=== PATIENT | female | born 1980 | race Caucasian/White ===

== ENCOUNTER 2021-12-09 16:09 | Inpatient (IN) | payer OTHER ==
[2021-12-09 17:28] LABS: Partial Thromboplastin Time 28.1 sec (22.0-30.0); Prothrombin Time 10.5 sec (9.0-12.0)
[2021-12-09 17:29] LABS: Basophils % (A) 0 %; Eosinophils # (A) 0.1 k/uL (0-0.7); Eosinophils % (A) 1 %; HCT 45.6 % (34.0-46.0); HGB 15.7 gm/dL (11.4-16.0); Lymphocytes # (A) 2.4 k/uL (1.0-4.8); Lymphocytes % (A) 24 %; MCHC 34.3 g/dL (31.0-37.0); MCV 81.7 fL (80.0-100.0); Mean Platelet Volume 10.7; Monocytes # (A) 0.3 k/uL (0-1.0); Monocytes % (A) 3 %; Neutrophils % (A) 71 %; Platelet Count 209 k/uL (150-450); RBC 5.59 m/uL (3.80-5.40); RDW 14.9 % (11.5-15.5); WBC 9.9 k/uL (3.8-10.6)
[2021-12-09 17:32] LABS: ALT 23 U/L (4-34); AST 31 U/L (14-36); African American GFR (CKD) >90 (>60 ml/min/1.73 sqM); Albumin 4.4 g/dL (3.5-5.0); Alkaline Phosphatase 99 U/L (38-126); Anion Gap 12 mmol/L; Blood Urea Nitrogen 13 mg/dL (7-17); Calcium 9.7 mg/dL (8.4-10.2); Carbon Dioxide 23 mmol/L (22-30); Chloride 102 mmol/L (98-107); Glucose 122 mg/dL (74-99); Magnesium 1.7 mg/dL (1.6-2.3); Non-African American GFR(CKD) >90 (>60 ml/min/1.73 sqM); Sodium 137 mmol/L (137-145); Total Bilirubin 0.8 mg/dL (0.2-1.3); Total Protein 7.8 g/dL (6.3-8.2)
--- NOTE | 2021-12-09 17:33 | ED ---
General Adult HPI - General Chief complaint: Chest Pain Stated complaint: chest pain, dizzy Time Seen by Provider: 12/09/21 16:50 Source: patient Mode of arrival: ambulatory Limitations: no limitations - History of Present Illness Initial comments: Dictation was produced using [employer] dictation software. please excuse any grammatical, word or spelling errors. Chief Complaint: 41-year-old female presents to the emergency department for episode of chest pain History of Present Illness: 41-year-old female she is past medical history of tobacco use, hypertension and diabetes. At work today she had an episode of chest pressure. States that it was a pressure-like sensation associated with left shoulder pain. She did report some mild nausea. States that her symptoms went away after she sat down. Patient denies any heart attack. She does have some family history. Patient states after 30 minutes her symptoms all. She is a symptomatically at this time. The ROS documented in this emergency department record has been reviewed and confirmed by me. Those systems with pertinent positive or negative responses have been documented in the HPI. All other systems are other negative and/or noncontributory. PHYSICAL EXAM: General Impression: Alert and oriented x3, not in acute distress HEENT: Normocephalic atraumatic, extra-ocular movements intact, pupils equal and reactive to light bilaterally, mucous membranes moist. Cardiovascular: Heart regular rate and rhythm Chest: Able to complete full sentences, no retractions, no tachypnea Abdomen: abdomen soft, non-tender, non-distended, no organomegaly Musculoskeletal: Pulses present and equal in all extremities, no peripheral edema Motor: no focal deficits noted Neurological: CN II-XII grossly intact, no focal motor or sensory deficits noted Skin: Intact with no visualized rashes Psych: Normal affect and mood ED course: 41-year-old female presents to the emergency department for coca presentation concerning for acute coronary syndrome. Vital signs upon arrival are within acceptable limits. EKG does not show any signs of ischemia or infarction. Laboratory evaluation obtained. CBC unremarkable. Coag panel is negative. Metabolic panel is unremarkable. Troponin is however elevated at 0.051. No old troponins for comparison. Clinical presentation concerning for non-ST segment elevation HI. Patient reevaluated at 6:15 PM and is still asymptomatic. Jose garcia be admitted with cardiology in consultation. Patient given aspirin and started on low-dose heparin. EKG interpretation: Ventricular rate 75, sinus rhythm,. Interval to 45, QS 108, QTc 448. No IN prolongation, no QTC prolongation, no ST or T-wave changes noted. E Overall, this EKG is unremarkable - Related Data Home Medications Medication Instructions Recorded Confirmed Losartan Potassium [Cozaar] 100 mg PO DAILY 12/09/21 12/09/21 carvediloL [Coreg] 25 mg PO BID 12/09/21 12/09/21 hydroCHLOROthiazide 50 mg PO BID 12/09/21 12/09/21 metFORMIN HCL [Glucophage] 1,000 mg PO W/SUPPER 12/09/21 12/09/21 Allergies Allergy/AdvReac Type Severity Reaction Status Date / Time latex Allergy Unknown Verified 12/09/21 17:39 Review of Systems ROS Statement: Those systems with pertinent positive or pertinent negative responses have been documented in the HPI. ROS Other: All systems not noted in ROS Statement are negative. Past Medical History Past Medical History: Diabetes Mellitus, Hypertension History of Any Multi-Drug Resistant Organisms: None Reported Past Surgical History: Section Past Psychological History: No Psychological Hx Reported Smoking Status: Current every day smoker Past Alcohol Use History: None Reported Past Drug Use History: Marijuana General Exam Limitations: no limitations Course Vital Signs 12/09/21 12/09/21 16:20 17:11 Temperature 97.5 F L 97.8 F Pulse Rate 72 73 Respiratory 20 16 Rate Blood Pressure 204/94 177/112 O2 Sat by Pulse 99 99 Oximetry Medical Decision Making - Lab Data Result diagrams: 12/09/21 17:05 12/09/21 17:05 Lab Results 12/09/21 12/09/21 12/09/21 Range/Units 17:05 17:05 17:05 WBC 9.9 (3.8-10.6) k/uL RBC 5.59 H (3.80-5.40) m/uL Hgb 15.7 (11.4-16.0) gm/dL Hct 45.6 (34.0-46.0) % MCV 81.7 (80.0-100.0) fL MCH 28.0 (25.0-35.0) pg MCHC 34.3 (31.0-37.0) g/dL RDW 14.9 (11.5-15.5) % Plt Count 209 (150-450) k/uL MPV 10.7 Neutrophils % 71 % Lymphocytes % 24 % Monocytes % 3 % Eosinophils % 1 % Basophils % 0 % Neutrophils # 7.0 (1.3-7.7) k/uL Lymphocytes # 2.4 (1.0-4.8) k/uL Monocytes # 0.3 (0-1.0) k/uL Eosinophils # 0.1 (0-0.7) k/uL Basophils # 0.0 (0-0.2) k/uL PT 10.5 (9.0-12.0) sec INR 1.0 (<1.2) APTT 28.1 (22.0-30.0) sec Sodium 137 (137-145) mmol/L Potassium 3.7 (3.5-5.1) mmol/L Chloride 102 (98-107) mmol/L Carbon Dioxide 23 (22-30) mmol/L Anion Gap 12 mmol/L BUN 13 (7-17) mg/dL Creatinine 0.74 (0.52-1.04) mg/dL Est GFR (CKD-EPI)AfAm >90 (>60 ml/min/1.73 sqM) Est GFR (CKD-EPI)NonAf >90 (>60 ml/min/1.73 sqM) Glucose 122 H (74-99) mg/dL Calcium 9.7 (8.4-10.2) mg/dL Magnesium 1.7 (1.6-2.3) mg/dL Total Bilirubin 0.8 (0.2-1.3) mg/dL AST 31 (14-36) U/L ALT 23 (4-34) U/L Alkaline Phosphatase 99 (38-126) U/L Troponin I (0.000-0.034) ng/mL Total Protein 7.8 (6.3-8.2) g/dL Albumin 4.4 (3.5-5.0) g/dL 12/09/21 Range/Units 17:05 WBC (3.8-10.6) k/uL RBC (3.80-5.40) m/uL Hgb (11.4-16.0) gm/dL Hct (34.0-46.0) % MCV (80.0-100.0) fL MCH (25.0-35.0) pg MCHC (31.0-37.0) g/dL RDW (11.5-15.5) % Plt Count (150-450) k/uL MPV Neutrophils % % Lymphocytes % % Monocytes % % Eosinophils % % Basophils % % Neutrophils # (1.3-7.7) k/uL Lymphocytes # (1.0-4.8) k/uL Monocytes # (0-1.0) k/uL Eosinophils # (0-0.7) k/uL Basophils # (0-0.2) k/uL PT (9.0-12.0) sec INR (<1.2) APTT (22.0-30.0) sec Sodium (137-145) mmol/L Potassium (3.5-5.1) mmol/L Chloride (98-107) mmol/L Carbon Dioxide (22-30) mmol/L Anion Gap mmol/L BUN (7-17) mg/dL Creatinine (0.52-1.04) mg/dL Est GFR (CKD-EPI)AfAm (>60 ml/min/1.73 sqM) Est GFR (CKD-EPI)NonAf (>60 ml/min/1.73 sqM) Glucose (74-99) mg/dL Calcium (8.4-10.2) mg/dL Magnesium (1.6-2.3) mg/dL Total Bilirubin (0.2-1.3) mg/dL AST (14-36) U/L ALT (4-34) U/L Alkaline Phosphatase (38-126) U/L Troponin I 0.051 H* (0.000-0.034) ng/mL Total Protein (6.3-8.2) g/dL Albumin (3.5-5.0) g/dL Critical Care Time Critical Care Time: Yes Total Critical Care Time: 33 Disposition Clinical Impression: NSTEMI (non-ST elevated myocardial infarction) Disposition: ADMITTED IP TO THIS [facility] Condition: Serious Referrals: None,Stated [REFERRING] - 1-2 days Decision Time: 18:17
[2021-12-09 17:38] LABS: Potassium 3.7 mmol/L (3.5-5.1)
--- NOTE | 2021-12-09 18:04 | XR ---
EXAMINATION TYPE: XR chest 2V DATE OF EXAM: 12/09/2021 COMPARISON: NONE HISTORY: Chest pain TECHNIQUE: 2 views FINDINGS: Heart is normal. Lungs are clear. Diaphragm is normal. Bony thorax is intact. IMPRESSION: Normal chest.
[2021-12-09] MEDS ORDERED: ASPIRIN 81 MG PO STA (18:08)
[2021-12-09] MEDS ORDERED: HEPARIN SODIUM 1,000 UN/ML (10ML VL) IV ONE (18:08)
[2021-12-09] MEDS ORDERED: NITROGLYCERIN SL TABS 0.4 MG TAB SUBLINGUAL PRN (18:14)
[2021-12-09] MEDS ORDERED: HEPARIN SOD,PORK IN 0.45% NACL 25,000 UNIT in 0.45% NACL 1 250ML.BAG IV SCH (18:15)
[2021-12-09] MEDS ORDERED: hydrALAZINE HCL 20 MG/ML 1 ML VIAL IVP STA (19:49)
[2021-12-09] MEDS: NITROGLYCERIN OINT 1 INCH/GM PACKET TOPICAL SCH (19:52)
[2021-12-09 20:21] LABS: Glucose,Whole Blood 101 mg/dL (70-110)
[2021-12-09] MEDS ORDERED: DEXTROSE 50% SYRINGE 50 ML IVP PRN ×2 (21:42)
[2021-12-09] MEDS ORDERED: LOSARTAN 50 MG TAB PO SCH (21:45)
[2021-12-09] MEDS ORDERED: carvediloL 12.5 MG TAB PO SCH ×2 (21:45)
[2021-12-09] MEDS: carvediloL 12.5 MG TAB PO SCH (22:10)
[2021-12-09] MEDS: HEPARIN SODIUM 1,000 UN/ML (10ML VL) IV PRN (22:29)
[2021-12-10] MEDS: NITROGLYCERIN OINT 1 INCH/GM PACKET TOPICAL SCH ×3 (00:02→14:40)
[2021-12-10 05:52] LABS: Glucose,Whole Blood 137 mg/dL (70-110)
[2021-12-10] MEDS: INSULIN ASPART (NovoLOG) 100 UNIT/ML VIAL SQ SCH ×4 (06:31→21:22)
[2021-12-10] MEDS: carvediloL 12.5 MG TAB PO SCH ×2 (06:36→16:40)
[2021-12-10] MEDS: VALSARTAN 160 MG TAB PO SCH (06:36)
[2021-12-10 06:47] LABS: Basophils % (A) 0 %; Eosinophils # (A) 0.1 k/uL (0-0.7); Eosinophils % (A) 1 %; HCT 46.2 % (34.0-46.0); HGB 15.4 gm/dL (11.4-16.0); Lymphocytes # (A) 2.4 k/uL (1.0-4.8); Lymphocytes % (A) 27 %; MCH 27.7 pg (25.0-35.0); MCHC 33.4 g/dL (31.0-37.0); MCV 82.9 fL (80.0-100.0); Mean Platelet Volume 10.8; Monocytes # (A) 0.3 k/uL (0-1.0); Monocytes % (A) 3 %; Neutrophils # (A) 5.8 k/uL (1.3-7.7); Neutrophils % (A) 67 %; Platelet Count 179 k/uL (150-450); RBC 5.57 m/uL (3.80-5.40); RDW 14.9 % (11.5-15.5); WBC 8.6 k/uL (3.8-10.6)
[2021-12-10] MEDS ORDERED: hydrALAZINE HCL 25 MG TAB PO PRN (06:55)
[2021-12-10] MEDS: HEPARIN SODIUM 1,000 UN/ML (10ML VL) IV PRN (07:04)
[2021-12-10 07:05] LABS: African American GFR (CKD) >90 (>60 ml/min/1.73 sqM); Anion Gap 10 mmol/L; Blood Urea Nitrogen 10 mg/dL (7-17); Calcium 9.1 mg/dL (8.4-10.2); Carbon Dioxide 28 mmol/L (22-30); Chloride 101 mmol/L (98-107); Glucose 138 mg/dL (74-99); Non-African American GFR(CKD) >90 (>60 ml/min/1.73 sqM); Potassium 3.3 mmol/L (3.5-5.1); Sodium 139 mmol/L (137-145)
--- NOTE | 2021-12-10 08:58 | P.HPIM ---
History of Present Illness This is a pleasant 41 years old female with past medical history of type 2 diabetes mellitus and hypertension Presents with left shoulder pain and chest pain. Patient states that she follow up with Dr. Stewart and she was diagnosed with diabetes about 2 months ago. 2 nights ago she woke up with tightness in her chest but yesterday when she went to work she was complaining of from central chest pain about/10 nonradiating fel t like deep achy sharp pain as per patient associated with left shoulder pain with no history of trauma. Her chest pain or shoulder pain are now completely resolved 0/10. Also she had some little dizziness. Chest chronic dry cough and she smokes about 1 pack per day she was counseled to quit and she does not feel it natarajan nicotine patch. She uses marijuana sometimes no alcohol. She works as a inside sales person This morning she was asking when she will be discharged. Patient vitals are reviewed. Patient is afebrile. Blood pressure is elevated at 208/84 this morning Labs reviewed showing unremarkable CBC, INR, BMP and liver enzymes Troponin elevated 0.05, 0.06, 0.07. EKG showing normal sinus rhythm at [address] elevation. There is mild ST flattening or slight depression in the lateral limits with some mild criteria for LVH. Chest x-ray: No acute process. Patient is already started on aspirin and heparin drip and electromechanical assembly technician consulted Review of Systems Review of systems CONSTITUTIONAL: No fever, no malaise, no fatigue. HEENT: No recent visual problems or hearing problems. Denied any sore throat. CARDIOVASCULAR: No orthopnea, PND, no palpitations, no syncope. PULMONARY: No shortness of breath, no cough, no hemoptysis. GASTROINTESTINAL: No diarrhea, no nausea, no vomiting, no abdominal pain. Normoactive bowel sounds. NEUROLOGICAL: No headaches, no weakness, no numbness. HEMATOLOGICAL: Denies any bleeding or petechiae. GENITOURINARY: Denies any burning micturition, frequency, or urgency. MUSCULOSKELETAL/RHEUMATOLOGICAL: Denies any joint pain, swelling, or any muscle pain. ENDOCRINE: Denies any polyuria or polydipsia. Past Medical History Past Medical History: Diabetes Mellitus, Hypertension History of Any Multi-Drug Resistant Organisms: None Reported Past Surgical History: Section Past Psychological History: No Psychological Hx Reported Smoking Status: Current every day smoker Past Alcohol Use History: None Reported Past Drug Use History: Marijuana Additional Drug Use History / Comment(s): daily marijuana use Medications and Allergies Home Medications Medication Instructions Recorded Confirmed Type Losartan Potassium [Cozaar] 100 mg PO DAILY 12/09/21 12/09/21 History carvediloL [Coreg] 25 mg PO BID 12/09/21 12/09/21 History hydroCHLOROthiazide 50 mg PO BID 12/09/21 12/09/21 History metFORMIN HCL [Glucophage] 1,000 mg PO W/SUPPER 12/09/21 12/09/21 History Allergies Allergy/AdvReac Type Severity Reaction Status Date / Time latex Allergy Unknown Verified 12/09/21 17:39 Physical Exam Vitals: Vital Signs Temp Pulse Pulse Resp BP BP Pulse Ox 12/10/21 05:50 208/84 12/10/21 04:30 97.8 F 70 18 194/91 97 12/10/21 01:17 178/91 12/10/21 00:25 184/100 12/09/21 23:50 76 18 206/100 95 12/09/21 20:15 97.8 F 75 20 178/83 98 12/09/21 19:40 64 20 197/109 98 12/09/21 18:31 69 16 160/83 99 12/09/21 17:11 97.8 F 73 16 177/112 99 12/09/21 16:20 97.5 F L 72 20 204/94 99 Intake and Output 12/09/21 12/09/21 12/10/21 14:59 22:59 06:59 Intake Total 39.508 Balance 39.508 Intake: Intake, IV Titration 39.508 Amount Heparin Sod,Pork in 0.45% 39.508 NaCl 25,000 unit In 0.45 % NaCl 1 250ml.bag @ 7.35 UNITS/KG/HR 10.002 mls/ hr IV .Q24H [facility] Rx#: [id number] Other: Voiding Method Toilet Toilet # Voids 1 Weight 136.078 kg -GENERAL: The patient is alert and oriented x3, not in any acute distress. Obese HEENT: Pupils are round and equally reacting to light. EOMI. No scleral icterus. No conjunctival pallor. Normocephalic, atraumatic. No pharyngeal erythema. No thyromegaly. CARDIOVASCULAR: S1 and S2 present. No murmurs, rubs, or gallops. PULMONARY: Chest is clear to auscultation, no wheezing or crackles. ABDOMEN: Soft, nontender, nondistended, normoactive bowel sounds. No palpable organomegaly. MUSCULOSKELETAL: No joint swelling or deformity. EXTREMITIES: No cyanosis, clubbing, or pedal edema. NEUROLOGICAL: Gross neurological examination did not reveal any focal deficits. SKIN: No rashes. no petechiae. Results CBC & Chem 7: 12/10/21 06:19 12/10/21 06:19 Labs: Abnormal Lab Results - Last 24 Hours (Table) 12/09/21 12/09/21 12/09/21 Range/Units 17:05 17:05 17:05 RBC 5.59 H (3.80-5.40) m/uL Glucose 122 H (74-99) mg/dL POC Glucose (mg/dL) (70-110) mg/dL Troponin I 0.051 H* (0.000-0.034) ng/mL 12/09/21 12/09/21 12/10/21 Range/Units 18:32 21:42 05:51 RBC (3.80-5.40) m/uL Glucose (74-99) mg/dL POC Glucose (mg/dL) 137 H (70-110) mg/dL Troponin I 0.065 H* 0.071 H* (0.000-0.034) ng/mL Thrombosis Risk Factor Assmnt - Choose All That Apply Any of the Below Risk Factors Present?: Yes Each Factor Represents 1 point: Obesity (BMI >25) Thrombosis Risk Factor Assessment Total Risk Factor Score: 1 Thrombosis Risk Factor Assessment Level: Low Risk Assessment and Plan Assessment: Left shoulder pain and chest pain suspicious for non-STEMI Nicotine dependence Hypertension Diabetes mellitus Obesity Plan: This is a pleasant 41 years old female who presents with non-STEMI Continue with aspirin can Continue with heparin drip Cardiology consult Patient counseled to quit smoking Monitor blood pressure Check hemoglobin A1c Continue with appropriate medication Coreg and losartan and monitor blood pressure closely Labs and medication were reviewed.. Continue same treatment. Continue with symptomatic treatment. Resume home medication. Monitor lytes and vitals. DVT and GI prophylaxis. Further recommendations as per clinical course of the patient DVT prophylaxis: heparin GI Prophylaxis: Pepcid Prognosis is guarded
[2021-12-10] MEDS ORDERED: ASPIRIN 325 MG TAB PO SCH (09:00)
[2021-12-10] MEDS: ATORVASTATIN 20 MG TAB PO SCH (09:37)
[2021-12-10] MEDS: TRIAMTERENE-HCTZ 75-50MG 1 EACH TAB PO SCH (09:37)
--- NOTE | 2021-12-10 11:36 | P.CRDCN ---
History of Present Illness Consult date: 12/10/21 Consult reason: hypertension History of present illness: This is Homer Caraballo NP, I'm dictating on behalf of Dr. Rivero's H&P and A&P The patient was interviewed and examined. HPI: [We have been consulted on a pleasant 41-year-old female for possible N STEMI and hypertension. Patient reports that she was having some chest discomfort, along with tightness and achiness in the middle of her chest. She reported that her lungs were tight feeling and she was having some shortness of breath and dizziness. She came to the hospital for evaluation. She was found to have slightly elevated troponins, but significant hypertension. Her EKG does not demonstrate any acute ST elevation or depression, or T-wave changes. Her blood pressure on arrival was 208/84. The patient was given aspirin as well as started on low-dose heparin drip. Home medications were continued. Patient has a past medical history significant for diabetes and hypertension.] ROS: [No fever, chills, or rigors] [no cough, phlegm, or expectoration] [no nausea, vomiting, or diarrhea] [no hematuria, dysuria] [no musculoskelatal complaints] [no strokes or seizures] [no skin lesions] EXAMINATION: GENERAL: Well-appearing, well-nourished and in no acute distress. NECK: Supple without JVD or thyromegaly. LUNGS: Breath sounds clear to auscultation bilaterally. Respiration equal and unlabored. No wheezes, rales or rhonchi. HEART: Regular rate and rhythm without murmurs, rubs or gallops. S1 and S2 heard. EXTREMITIES: Normal range of motion, no edema. No clubbing or cyanosis. Peripheral pulses intact and strong. REVIEW OF LABS, ECG & MEDICAL DATA: LABS: White count 8.6, hemoglobin 15.4, platelets 179, sodium 139, potassium 3.3, B1 10, creatinine 0.60, hemoglobin A1c 6.0, troponin 0.065, 0.071, TSH 1.380 EKG: Normal sinus rhythm with first-degree AV block. IMAGING: Chest x-ray dated 12/09/2021 shows a normal chest. VITALS: Temp 97.9, pulse 67, respirations 16, blood pressure 188/102, O2 saturation 97% on room air IMPRESSION: 1. Severe hypertension, uncontrolled 2. Diabetes mellitus, controlled 3. Elevated troponins PLAN: Patient has not had an ME. Troponin elevation is secondary to severe hypertension. Start Maxide 75-50 daily. Discontinue high-dose aspirin, start aspirin 81 mg daily. Discontinue hydralazine. Start atorvastatin 20 mg daily. Discontinue heparin. Check TSH, lipid panel, and hemoglobin A1c Further recommendations based on the patient's clinical course. Thank you for the consult and allowing us to participate in the care of this patient. Past Medical History Past Medical History: Diabetes Mellitus, Hypertension History of Any Multi-Drug Resistant Organisms: None Reported Past Surgical History: Section Past Psychological History: No Psychological Hx Reported Smoking Status: Current every day smoker Past Alcohol Use History: None Reported Past Drug Use History: Marijuana Additional Drug Use History / Comment(s): daily marijuana use Medications and Allergies Home Medications Medication Instructions Recorded Confirmed Type Losartan Potassium [Cozaar] 100 mg PO DAILY 12/09/21 12/09/21 History carvediloL [Coreg] 25 mg PO BID 12/09/21 12/09/21 History hydroCHLOROthiazide 50 mg PO BID 12/09/21 12/09/21 History metFORMIN HCL [Glucophage] 1,000 mg PO W/SUPPER 12/09/21 12/09/21 History Allergies Allergy/AdvReac Type Severity Reaction Status Date / Time latex Allergy Unknown Verified 12/09/21 17:39 Physical Exam Vitals: Vital Signs Temp Pulse Pulse Resp BP BP Pulse Ox 12/10/21 09:04 97.9 F 67 16 188/102 97 12/10/21 08:00 16 12/10/21 05:50 208/84 12/10/21 04:30 97.8 F 70 18 194/91 97 12/10/21 01:17 178/91 12/10/21 00:25 184/100 12/09/21 23:50 76 18 206/100 95 12/09/21 20:15 97.8 F 75 20 178/83 98 12/09/21 19:40 64 20 197/109 98 12/09/21 18:31 69 16 160/83 99 12/09/21 17:11 97.8 F 73 16 177/112 99 12/09/21 16:20 97.5 F L 72 20 204/94 99 Intake and Output 1012/10/21 12/10/21 22:59 06:59 14:59 Intake Total 39.508 121.592 Balance 39.508 121.592 Intake: Intake, IV Titration 39.508 121.592 Amount Heparin Sod,Pork in 0.45% 39.508 121.592 NaCl 25,000 unit In 0.45 % NaCl 1 250ml.bag @ 7.35 UNITS/KG/HR 10.002 mls/ hr IV .Q24H [facility] Rx#: [id number] Other: Voiding Method Toilet Toilet Toilet # Voids 1 1 Weight 136.078 kg Results 12/10/21 06:19 12/10/21 06:19 Cardiac Enzymes 12/09/21 12/09/21 12/09/21 Range/Units 17:05 17:05 18:32 AST 31 (14-36) U/L Troponin I 0.051 H* 0.065 H* (0.000-0.034) ng/mL 12/09/21 Range/Units 21:42 AST (14-36) U/L Troponin I 0.071 H* (0.000-0.034) ng/mL Coagulation 12/09/21 12/09/21 12/10/21 Range/Units 17:05 21:42 06:19 PT 10.5 (9.0-12.0) sec APTT 28.1 29.8 31.3 H (22.0-30.0) sec CBC 12/09/21 12/10/21 Range/Units 17:05 06:19 WBC 9.9 8.6 (3.8-10.6) k/uL RBC 5.59 H 5.57 H (3.80-5.40) m/uL Hgb 15.7 15.4 (11.4-16.0) gm/dL Hct 45.6 46.2 H (34.0-46.0) % Plt Count 209 179 (150-450) k/uL Comprehensive Metabolic Panel 12/09/21 12/10/21 Range/Units 17:05 06:19 Sodium 137 139 (137-145) mmol/L Potassium 3.7 3.3 L (3.5-5.1) mmol/L Chloride 102 101 (98-107) mmol/L Carbon Dioxide 23 28 (22-30) mmol/L BUN 13 10 (7-17) mg/dL Creatinine 0.74 0.60 (0.52-1.04) mg/dL Glucose 122 H 138 H (74-99) mg/dL Calcium 9.7 9.1 (8.4-10.2) mg/dL AST 31 (14-36) U/L ALT 23 (4-34) U/L Alkaline Phosphatase 99 (38-126) U/L Total Protein 7.8 (6.3-8.2) g/dL Albumin 4.4 (3.5-5.0) g/dL Current Medications Generic Name Dose Route Start Last Admin Trade Name Freq PRN Reason Stop Dose Admin Aspirin 81 mg 12/11/21 09:00 Aspirin 81 Mg PO DAILY [facility] Atorvastatin Calcium 20 mg 12/10/21 09:15 12/10/21 09:37 Atorvastatin 20 Mg Tab PO 20 mg DAILY [facility] Administration Carvedilol 25 mg 12/09/21 22:15 12/10/21 06:36 Carvedilol 12.5 Mg Tab PO 25 mg BID-W/MEALS [facility] Administration Dextrose/Water 25 ml 12/09/21 21:42 Dextrose 50% Syringe 50 Ml IVP PER PROTOCOL PRN Hypoglycemia Protocol Dextrose/Water 50 ml 12/09/21 21:42 Dextrose 50% Syringe 50 Ml IVP PER PROTOCOL PRN Hypoglycemia Protocol Heparin Sodium (Porcine) 0 unit 12/09/21 18:08 12/10/21 07:04 Heparin Sodium 1,000 Un/Ml (10ml Vl) IV 4,000 unit PER PROTOCOL PRN Administration Low PTT Protocol Heparin Sodium/Sodium Chloride 250 mls @ 10.002 mls/hr 12/09/21 18:15 12/10/21 07:04 25,000 unit/ Sodium Chloride IV 13.35 units/kg/hr .Q24H [facility] 18.166 mls/hr Titration Protocol 7.35 UNITS/KG/HR Insulin Aspart 0 unit 12/10/21 07:30 12/10/21 06:31 Insulin Aspart (Novolog) 100 Unit/Ml Vial SQ Not Given ACHS [facility] Protocol Nitroglycerin 0.4 mg 12/09/21 18:14 Nitroglycerin Sl Tabs 0.4 Mg Tab SUBLINGUAL Q5M PRN Chest Pain Nitroglycerin 1 inch 12/09/21 19:45 12/10/21 05:18 Nitroglycerin Oint 1 Inch/Gm Packet TOPICAL 1 inch Q6HR [facility] Administration Triamterene/Hydrochlorothiazide 1 each 12/10/21 09:15 12/10/21 09:37 Triamterene-Hctz 75-50mg 1 Each Tab PO 1 each DAILY [facility] Administration Valsartan 320 mg 12/10/21 06:19 12/10/21 06:36 Valsartan 160 Mg Tab PO 320 mg DAILY@0900 [facility] Administration Intake and Output 12/09/21 12/10/21 12/10/21 22:59 06:59 14:59 Intake Total 39.508 121.592 Balance 39.508 121.592 Intake: Intake, IV Titration 39.508 121.592 Amount Heparin Sod,Pork in 0.45% 39.508 121.592 NaCl 25,000 unit In 0.45 % NaCl 1 250ml.bag @ 7.35 UNITS/KG/HR 10.002 mls/ hr IV .Q24H [facility] Rx#: [id number] Other: Voiding Method Toilet Toilet Toilet # Voids 1 1 Weight 136.078 kg 12/10/21 06:19 12/10/21 06:19
[2021-12-10 11:40] LABS: Glucose,Whole Blood 134 mg/dL (70-110)
[2021-12-10 11:58] LABS: Chol/HDL Ratio 7.44 Ratio
[2021-12-10] MEDS ORDERED: carvediloL 12.5 MG TAB PO STA (12:21)
[2021-12-10] MEDS ORDERED: POTASSIUM CHLORIDE ER 20 MEQ TAB.ER PO STA (15:35)
[2021-12-10 16:40] LABS: Glucose,Whole Blood 111 mg/dL (70-110)
[2021-12-10 19:49] LABS: Glucose,Whole Blood 115 mg/dL (70-110)
[2021-12-11 05:01] VITALS: RESP 18
[2021-12-11 05:56] LABS: Glucose,Whole Blood 133 mg/dL (70-110)
[2021-12-11] MEDS: carvediloL 12.5 MG TAB PO SCH (06:23)
[2021-12-11] MEDS: INSULIN ASPART (NovoLOG) 100 UNIT/ML VIAL SQ SCH ×2 (06:26→12:15)
[2021-12-11 07:09] LABS: African American GFR (CKD) >90 (>60 ml/min/1.73 sqM); Anion Gap 12 mmol/L; Blood Urea Nitrogen 12 mg/dL (7-17); Carbon Dioxide 26 mmol/L (22-30); Chloride 99 mmol/L (98-107); Glucose 124 mg/dL (74-99); Non-African American GFR(CKD) >90 (>60 ml/min/1.73 sqM); Potassium 3.6 mmol/L (3.5-5.1); Sodium 137 mmol/L (137-145)
[2021-12-11] MEDS: VALSARTAN 160 MG TAB PO SCH (08:51)
[2021-12-11] MEDS: ATORVASTATIN 20 MG TAB PO SCH (08:51)
[2021-12-11] MEDS: TRIAMTERENE-HCTZ 75-50MG 1 EACH TAB PO SCH (08:51)
[2021-12-11 08:54] VITALS: TEMP 97.8
[2021-12-11] MEDS ORDERED: ASPIRIN 81 MG PO SCH (09:00)
[2021-12-11] MEDS ORDERED: EZETIMIBE 10 MG TAB PO SCH (09:30)
--- NOTE | 2021-12-11 11:26 | P.PN ---
Subjective Progress Note Date: 12/11/21 This is Homer Caraballo NP, I'm dictating on behalf of Dr. Rivero's H&P and A&P. Patient was interviewed and examined. Patient is a pleasant 41-year-old female who we were initially consult on for severe hypertension. Patient reports that she feels completely fine today. She denies chest pain, shortness of breath, headache, dizziness, and diaphoresis. Patient was found to have triglycerides of 558, a cholesterol of 238, an HDL of 32. Her hemoglobin A1c is within normal limits. Her TSH is within normal limits. She has been tolerating the addition of Maxide and atorvastatin. Her blood pressures are demonstrating improvement, however still elevated. GENERAL: Well-appearing, well-nourished and in no acute distress. NECK: Supple without JVD or thyromegaly. LUNGS: Breath sounds clear to auscultation bilaterally. Respiration equal and unlabored. No wheezes, rales or rhonchi. HEART: Regular rate and rhythm without murmurs, rubs or gallops. S1 and S2 heard. EXTREMITIES: Normal range of motion, no edema. No clubbing or cyanosis. Peripheral pulses intact and strong. VITALS: Temp 97.8, pulse 72, respirations 18, blood pressure 169/87, O2 saturation 97% on room air. TELEMETRY: Normal sinus rhythm LABS: Sodium 137, potassium 3.6, B1 12, creatinine 0.67, calcium 9.0, triglycerides 55 8, cholesterol 238, HDL 32, TSH 1.38 IMPRESSION: 1. Severe hypertension, uncontrolled, improving 2. Diabetes mellitus, controlled 3. Elevated troponins PLAN: Patient may be discharged from a cardiology standpoint Patient should be discharged on: Zetia 1 tab daily Atorvastatin 20 mg daily Carvedilol 50 mg twice a day Maxide one tablet daily Valsartan 320 mg daily Follow-up with Dr. Rivero in 1-2 weeks Objective - Vital Signs Vital signs: Vital Signs Temp 97.8 F 12/11/21 08:51 Pulse 72 12/11/21 08:51 Resp 18 12/11/21 08:51 BP 169/87 12/11/21 08:51 Pulse Ox 97 12/11/21 08:51 FiO2 Intake & Output 10/15/22 10/16/22 10/16/22 18:59 06:59 18:59 Intake Total 328.492 118 Output Total 300 Balance 28.492 118 Intake: Intake, IV Titration 210.492 Amount Heparin Sod,Pork in 0.45% 210.492 NaCl 25,000 unit In 0.45 % NaCl 1 250ml.bag @ 7.35 UNITS/KG/HR 10.002 mls/ hr IV .Q24H [facility] Rx#: [id number] Oral 118 118 Output: Urine 300 Other: Voiding Method Toilet Toilet Toilet # Voids 2 # Bowel Movements 1 - Labs CBC & Chem 7: 12/10/21 06:19 12/11/21 06:03 Labs: Abnormal Lab Results - Last 24 Hours (Table) 12/10/21 12/10/21 12/10/21 Range/Units 06:19 11:38 16:35 Potassium 3.3 L (3.5-5.1) mmol/L Glucose 138 H (74-99) mg/dL POC Glucose (mg/dL) 134 H 111 H (70-110) mg/dL Triglycerides 558.00 H (0.00-149.00) mg/dL Cholesterol 238.00 H (0.00-200.00) mg/dL HDL Cholesterol 32.00 L (40.00-60.00) mg/dL 12/10/21 12/11/21 12/11/21 Range/Units 19:47 05:53 06:03 Potassium (3.5-5.1) mmol/L Glucose 124 H (74-99) mg/dL POC Glucose (mg/dL) 115 H 133 H (70-110) mg/dL Triglycerides (0.00-149.00) mg/dL Cholesterol (0.00-200.00) mg/dL HDL Cholesterol (40.00-60.00) mg/dL
[2021-12-11 11:36] LABS: Glucose,Whole Blood 111 mg/dL (70-110)
[2021-12-11 12:17] VITALS: BP 174/94; PULSE 84
--- NOTE | 2021-12-11 22:37 | P.DS ---
Providers Date of admission: 12/09/21 18:14 Attending physician: Yisel Crowley Consults: 12/09/21 18:14 Consult Physician Urgent Consulting Provider: Aram Merino Consult Reason/Comments: nstemi Do you want consulting provider notified?: Yes Primary care physician: [facility] Course: Diagnoses: Hypertension, uncontrolled on admission. Better controlled on discharge. Cleared By technical intern for discharge elevated troponin, secondary to above. Left shoulder pain and chest pain, secondary to above. resolve Nicotine dependence history of diabetes mellitus Diabetes mellitus. Repeat hemoglobin A1c is 6%. Patient advised with diet control Obesity Hospital course: This is a pleasant 41 years old female with past medical history of type 2 diabetes mellitus and hypertension Presents with left shoulder pain and chest pain. Patient states that she follow up with Dr. Stewart and she was diagnosed with diabetes about 2 months ago. 2 nights ago she woke up with tightness in her chest but yesterday when she went to work she was complaining of from central chest pain . On admission she has uncontrolled blood pressure 208/84. With mildly elevated troponin, she's been evaluated by technical intern, blood pressure medication was adjusted by technical intern and pupils are 320 mg, triamterene-hydrochlorothiazide, Coreg 50 mg. Her blood pressure is better controlled and systolic is in 170s. Patient with no chest pain or shoulder pain for the last 24-48 hours. Patient is asymptomatic today. She was to go home from yesterday and this morning she said she cannot afford staying one more night because of insurance problem and that she wants to go home on follow-up with patient. No other GI or urinary symptoms. Walking is normal. Patient was cleared for discharge by technical intern Prescription is provided for the patient Problems and management plan were discussed with the patient and he verbalized understanding and acceptance Patient was found stable and can be discharged home however he needs follow-up as an outpatient. Patient was instructed to follow up with PCP Dr. Stewart within one week and patient agrees Patient was instructed to follow up with technical intern Dr. Clayton in one week and she agrees to call and make appointment as today is week Physical exam Gen: patient is a AAOx3, no distress CVS: S1-S2, RRR, no murmur Lungs: B/L CTA, no wheezing Abdomen: soft, no distention, no tenderness, positive bowel sounds Extremity: no leg edema or induration Time spent more than 35 minutes Patient Condition at Discharge: Serious Plan - Discharge Summary Discharge Rx Participant: No New Discharge Prescriptions: New Aspirin 81 mg PO DAILY #30 tab Atorvastatin [Lipitor] 20 mg PO DAILY #30 tab Valsartan [Diovan] 320 mg PO DAILY@0900 #60 tab Triamterene-Hctz 75-50Mg [Maxzide 75-50] 1 each PO DAILY #30 tab Ezetimibe [Zetia] 10 mg PO DAILY #30 tab Changed carvediloL [Coreg] 50 mg PO BID #60 tab Discontinued hydroCHLOROthiazide 50 mg PO BID metFORMIN HCL [Glucophage] 1,000 mg PO W/SUPPER Losartan Potassium [Cozaar] 100 mg PO DAILY Discharge Medication List Aspirin 81 mg PO DAILY #30 tab 12/11/21 [Rx] Atorvastatin [Lipitor] 20 mg PO DAILY #30 tab 12/11/21 [Rx] Ezetimibe [Zetia] 10 mg PO DAILY #30 tab 12/11/21 [Rx] Triamterene-Hctz 75-50Mg [Maxzide 75-50] 1 each PO DAILY #30 tab 12/11/21 [Rx] Valsartan [Diovan] 320 mg PO DAILY@0900 #60 tab 12/11/21 [Rx] carvediloL [Coreg] 50 mg PO BID #60 tab 12/11/21 [Rx] Follow up Appointment(s)/Referral(s): Wes Rivero MD [STAFF PHYSICIAN] - 1 Week (Please call tomorrow to schedule follow up. ) None,Stated [REFERRING] - 1-2 days Florentino Chris DO [Primary Care Provider] - 1 Week (your pcp) Patient Instructions/Handouts: Hypertension (GEN) Activity/Diet/Wound Care/Special Instructions: Heart healthy diet, low carbohydrate diet 1600 kcal per day Activity is restricted till you see your doctor we Recommend to check your blood glucose and hemoglobin A1c in 1 month with your doctor. we Recommend find nearby primary care doctor and call Make an appointment in 1 week Discharge Disposition: HOME SELF-CARE
== END 2021-12-11 13:48 | disposition home or self-care (01) | DRG 313 ==
LOC: EC 16:09 → 3SCARD 18:14
PROVIDERS: ADMIT Internal Medicine; ATTEND Internal Medicine
DX: R07.9 Chest pain, unspecified (principal); Z68.42 Body mass index [BMI] 45.0-49.9, adult; I10 Essential (primary) hypertension; I44.0 Atrioventricular block, first degree; E11.9 Type 2 diabetes mellitus without complications; R79.89 Other specified abnormal findings of blood chemistry; M25.512 Pain in left shoulder; E66.9 Obesity, unspecified; F17.210 Nicotine dependence, cigarettes, uncomplicated; Z79.84 Long term (current) use of oral hypoglycemic drugs; Z79.899 Other long term (current) drug therapy; Z91.040 Latex allergy status; Z71.6 Tobacco abuse counseling
CPT/HCPCS: 36415; 71046; 80048; 80053; 80061; 83036; 83721; 83735; 84443; 84484; 84703; 85025; 85610; 85730; 93005

== ENCOUNTER → 2023-09-04 | Outpatient (CLI) | payer OTHER ==
--- NOTE | 2023-09-13 07:39 | MM ---
Reason for Exam: Screening (asymptomatic). Baseline mammogram. Patient History: Menarche at age 15. First Full-Term at age 28. Patient has history of breast feeding. Last menstrual period: 09/04/2023 Risk Values: Yvette 5 year model risk: 0.7%. NCI Lifetime model risk: 11.0%. Prior Study Comparison: Patient's first Mammogram. Tissue Density: There are scattered areas of fibroglandular density. Findings: Analyzed By CAD. The pattern is symmetrical. No suspicious groups of microcalcifications, spiculated or lobular masses, architectural distortion or other secondary signs of malignancy are mammographically apparent. Overall Assessment: Benign, BI-RAD 2 Management: Screening Mammogram of both breasts in 1 year. A negative mammogram report should not preclude additional follow up of suspicious palpable abnormalities. Patient should continue monthly self breast exam. A clinical breast exam by your physician is recommended on an annual basis and results should be correlated with mammographic findings. Note on Yvette scores and lifetime risk: 1. A Yvette score greater than 3% is considered moderate risk. If this is the case, consider specialist referral to assess eligibility for a risk reducing agent. 2. If overall lifetime risk for the development of breast cancer is 20% or higher, the patient may qualify for future screening with alternating mammogram and breast MRI. Electronically signed and approved by: Frank Goel D.O. Radiologis
== END | disposition home or self-care (01) ==
LOC: RADMAMWWP 15:18
PROVIDERS: ATTEND Family Medicine
DX: Z12.31 Encounter for screening mammogram for malignant neoplasm of breast (principal); R92.323 Mammographic fibroglandular density, bilateral breasts
CPT/HCPCS: 77067